=== PATIENT | male | born 1950 | race Caucasian/White ===

== ENCOUNTER 2018-06-15 23:07 | Inpatient (IN) | payer MEDICARE, OTHER ==
[2018-06-15] MEDS: HYDROmorphONE 1 MG/ML SYG IV (23:25)
[2018-06-15] MEDS: ONDANSETRON 4 MG INJ IV (23:25)
[2018-06-15] MEDS: SOD CHLORIDE 0.9% 500 ML IV (23:26)
[2018-06-15] MEDS: HYDROmorphONE 2 MG/ML SYG IV (23:54)
[2018-06-16 00:01] LABS: ADD MAN DIFF? NO
[2018-06-16 00:03] LABS: WHITE BLOOD COUNT 5.3 10^3/ul (4.8-10.8)
[2018-06-16 00:03] LABS: ABNORMAL IP MESSAGE 1; BASOPHILS % 0.2 % (0.0-2.0); EOSINOPHILS # 0.1 10^3/ul (0.0-0.5); EOSINOPHILS % 1.3 % (0.0-7.0); HEMATOCRIT 34.8 % (42.0-52.0); HEMOGLOBIN 11.5 g/dl (14.0-18.0); LYMPHOCYTES # 1.6 10^3/ul (0.8-2.9); LYMPHOCYTES % 30.4 % (15.0-51.0); MEAN CORPUSCULAR HEMOGLOBIN 30.3 pg (29.0-33.0); MEAN CORPUSCULAR VOLUME 91.8 fl (82.0-101.0); MEAN PLATELET VOLUME 8.9 fl (7.4-10.4); MONOCYTE # 0.1 10^3/ul (0.3-0.9); MONOCYTES % 2.3 % (0.0-11.0); NEUTROPHIL # 3.5 10^3/ul (1.6-7.5); NEUTROPHILS % 65.6 % (39.0-77.0); PLATELET COUNT 91 10^3/UL (140-415); POSITIVE DIFF @See below; RED BLOOD COUNT 3.79 10^6/ul (4.70-6.10); RED CELL DISTRIBUTION WIDTH 13.3 % (11.5-14.5)
[2018-06-16 00:25] LABS: ALANINE AMINOTRANSFERASE 67 IU/L (13-69); ALBUMIN/GLOBULIN RATIO 1.29; ALKALINE PHOSPHATASE 49 IU/L (42-121); ANION GAP 8 (5-13); ASPARTATE AMINO TRANSFERASE 64 IU/L (15-46); BILIRUBIN,INDIRECT 0.8 mg/dl (0-1.1); BILIRUBIN,TOTAL 0.8 mg/dl (0.2-1.3); BLOOD UREA NITROGEN 16 mg/dl (7-20); CALCIUM 9.5 mg/dl (8.4-10.2); CARBON DIOXIDE 27 mmol/L (21-31); CHLORIDE 103 mmol/L (97-110); CREATININE 0.86 mg/dl (0.61-1.24); Estimated GFR > 60 mL/min (>60); GLUCOSE 111 mg/dl (70-220); LIPASE 104 U/L (23-300); POTASSIUM 3.6 mmol/L (3.5-5.1); SODIUM 138 mmol/L (135-144); TOTAL PROTEIN 7.1 g/dl (6.1-8.1)
[2018-06-16 00:47] LABS: INR 0.97
[2018-06-16 00:48] LABS: PARTIAL THROMBOPLASTIN TIME 22.7 Sec (23.0-35.0)
[2018-06-16] MEDS: SOD CHLORIDE 0.9% 1,000 ML IV ×2 (00:58→15:26)
[2018-06-16] MEDS ORDERED: NACL 0.9% 3 ML SYG IV (01:00)
[2018-06-16] MEDS ORDERED: ACETAMINOPHEN 325 MG TAB PO (01:00)
[2018-06-16] MEDS ORDERED: ONDANSETRON 4 MG INJ IV (01:00)
[2018-06-16] MEDS ORDERED: BISACODYL (EC) 5 MG TAB PO (01:00)
[2018-06-16] MEDS ORDERED: DOCUSATE SODIUM 100 MG CAP PO (01:00)
[2018-06-16] MEDS: HYDROCODONE/APAP (10/325) TAB PO ×4 (01:05→18:30)
[2018-06-16] MEDS: HYDROmorphONE 0.5 MG/0.5 ML SYG IV ×3 (02:07→16:27)
[2018-06-16] MEDS ORDERED: ZOLPIDEM 5 MG TAB PO (04:30)
[2018-06-16 05:46] LABS: ABNORMAL IP MESSAGE 1; ADD MAN DIFF? NO; BASOPHILS % 0.4 % (0.0-2.0); EOSINOPHILS # 0.1 10^3/ul (0.0-0.5); EOSINOPHILS % 1.1 % (0.0-7.0); HEMATOCRIT 33.1 % (42.0-52.0); HEMOGLOBIN 10.8 g/dl (14.0-18.0); LYMPHOCYTES # 0.9 10^3/ul (0.8-2.9); LYMPHOCYTES % 16.3 % (15.0-51.0); MEAN CORPUSCULAR HEMOGLOBIN 30.3 pg (29.0-33.0); MEAN CORPUSCULAR HGB CONC 32.6 g/dl (32.0-37.0); MEAN PLATELET VOLUME 9.2 fl (7.4-10.4); MONOCYTE # 0.1 10^3/ul (0.3-0.9); MONOCYTES % 1.1 % (0.0-11.0); NEUTROPHIL # 4.5 10^3/ul (1.6-7.5); NEUTROPHILS % 80.9 % (39.0-77.0); PLATELET COUNT 84 10^3/UL (140-415); POSITIVE DIFF @See below; RED BLOOD COUNT 3.56 10^6/ul (4.70-6.10); RED CELL DISTRIBUTION WIDTH 13.6 % (11.5-14.5)
[2018-06-16 05:46] LABS: WHITE BLOOD COUNT 5.5 10^3/ul (4.8-10.8)
[2018-06-16 06:11] LABS: CREATINE KINASE 77 IU/L (23-200)
[2018-06-16 06:23] LABS: CK INDEX 0.5; CK-MB 0.42 ng/ml (0.0-2.4); TROPONIN-I 0.015 ng/ml (0.000-0.120)
[2018-06-16 06:40] LABS: ALANINE AMINOTRANSFERASE 66 IU/L (13-69); ALBUMIN 3.7 g/dl (3.3-4.9); ALBUMIN/GLOBULIN RATIO 1.37; ALKALINE PHOSPHATASE 46 IU/L (42-121); ANION GAP 8 (5-13); ASPARTATE AMINO TRANSFERASE 58 IU/L (15-46); BILIRUBIN,INDIRECT 0.6 mg/dl (0-1.1); BILIRUBIN,TOTAL 0.6 mg/dl (0.2-1.3); BLOOD UREA NITROGEN 13 mg/dl (7-20); CALCIUM 8.7 mg/dl (8.4-10.2); CARBON DIOXIDE 29 mmol/L (21-31); CHLORIDE 101 mmol/L (97-110); CREATININE 0.66 mg/dl (0.61-1.24); Estimated GFR > 60 mL/min (>60); GLUCOSE 115 mg/dl (70-220); MAGNESIUM 1.3 mg/dl (1.7-2.5); POTASSIUM 3.8 mmol/L (3.5-5.1); SODIUM 138 mmol/L (135-144); TOTAL PROTEIN 6.4 g/dl (6.1-8.1)
[2018-06-16] MEDS: FOLIC ACID 1 MG TAB PO (09:38)
[2018-06-16] MEDS: METOPROLOL (XL) 100 MG TAB PO (10:58)
[2018-06-16 12:18] LABS: CREATINE KINASE 76 IU/L (23-200)
[2018-06-16 12:24] LABS: CK INDEX 0.5; TROPONIN-I < 0.012 ng/ml (0.000-0.120)
[2018-06-16 16:43] LABS: CREATINE KINASE 74 IU/L (23-200)
[2018-06-16 16:56] LABS: CK INDEX 0.6; CK-MB 0.44 ng/ml (0.0-2.4); TROPONIN-I < 0.012 ng/ml (0.000-0.120)
[2018-06-16] MEDS: HYDROmorphONE 2 MG/ML SYG IV (20:37)
[2018-06-16] MEDS: ATORVASTATIN 40 MG TAB PO (20:45)
== END 2018-06-16 21:30 | disposition short-term general hospital (02) | DRG 543 ==
LOC: E/R 23:07 → MS1 06-16 00:41
DX: M84.452A Pathological fracture, left femur, initial encounter for fracture (principal); C34.90 Malignant neoplasm of unspecified part of unspecified bronchus or lung; C79.9 Secondary malignant neoplasm of unspecified site; I10 Essential (primary) hypertension; E78.00 Pure hypercholesterolemia, unspecified; E11.9 Type 2 diabetes mellitus without complications; F17.200 Nicotine dependence, unspecified, uncomplicated
CPT/HCPCS: 36415; 71045; 73550; 73590; 80053; 82550; 82553; 83690; 83735; 84484; 85025; 85610; 85730; 93005; 93306; 96374; 96375; 99285-25